=== PATIENT | male | born 1975 | race Caucasian/White ===

== ENCOUNTER 2020-12-07 01:19 | Emergency (ER) | payer BC ==
[2020-12-07] MEDS ORDERED: BUFFERED LIDOCAINE 10 ML SYRINGE IU ONE (02:39)
[2020-12-07] MEDS ORDERED: TETANUS/DIPHTHERIA/PERTUSSIS 0.5 ML SYRINGE IM ONE (02:53)
[2020-12-07] MEDS ORDERED: BACITRACIN ZINC OINT 1 PACKET TOP STA (03:04)
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
[2020-12-07 03:42] VITALS: BP 190/99
== END 2020-12-07 03:45 | disposition home or self-care (01) ==
LOC: ED 01:19
DX: S00.11XA Contusion of right eyelid and periocular area, initial encounter (principal); S01.511A Laceration without foreign body of lip, initial encounter; S00.81XA Abrasion of other part of head, initial encounter; S60.521A Blister (nonthermal) of right hand, initial encounter; S80.821A Blister (nonthermal), right lower leg, initial encounter; W39.XXXA Discharge of firework, initial encounter; Y93.89 Activity, other specified; F17.200 Nicotine dependence, unspecified, uncomplicated
CPT/HCPCS: 12013; 90471; 90715; 99282; 99283; A9270